=== PATIENT | female | born 1995 | race African-American/Black ===

== ENCOUNTER 2018-07-20 22:39 | Emergency (ER) | payer OTHER, MEDICAID ==
[~2018-07-20] VITALS: Ht 157.5 cm; Wt 63.5 kg
[2018-07-20 23:10] LABS: URINE BILIRUBIN NEGATIVE (Negative); URINE BLOOD 3+ (Negative); URINE CLARITY CLEAR; URINE COLOR YELLOW; URINE GLUCOSE-RANDOM NEGATIVE (Negative); URINE KETONES NEGATIVE (Negative); URINE LEUKOCYTES-REFLEX TRACE (Negative); URINE NITRITE-REFLEX NEGATIVE (Negative); URINE PROTEIN TRACE (Negative); URINE SPECIFIC GRAVITY 1.025 (1.005-1.030); URINE UROBILINOGEN 0.2 E.U./dl (0.2-1.0)
[2018-07-20] MEDS ORDERED: PYRIDIUM100 M1 PO (23:15)
[2018-07-20] MEDS ORDERED: CIPROFLOXACIN500 M1 PO (23:15)
[2018-07-20 23:28] VITALS: BP 115/72
[2018-07-20 23:44] LABS: SQUAMOUS >10 Many /LPF (0-3)
[2018-07-20 23:45] LABS: CASTS None Seen /LPF (None Seen); MUCUS 4-6 Moderate strn/LPF (None Seen); URINE WBC-REFLEX 6-15 Few /HPF (0-5)
[2018-07-20 23:46] LABS: CRYSTALS None Seen /LPF (None Seen); URINE RBC 3-10 Few /HPF (0-2)
== END 2018-07-20 23:28 | disposition home or self-care (01) ==
LOC: M.ERS 22:39
PROVIDERS: Family Medicine
DX: N39.0 Urinary tract infection, site not specified (principal)